=== PATIENT | male | born 1990 | race African-American/Black ===

== ENCOUNTER 2025-08-29 16:10 | Emergency (ER) | payer MEDICAID ==
[~2025-08-29] VITALS: Ht 180.3 cm; Wt 85.0 kg
[~2025-08-29 16:10] MED LIST: HYDR-4001 MT
[2025-08-29 16:21] VITALS: O2SAT 99
[2025-08-29] MEDS ORDERED: HYDR-4001 MT (17:56)
[2025-08-29 18:07] VITALS: BP 130/62; PULSE 80; RESP 16; TEMP 36.7; O2SAT 97
== END 2025-08-29 18:15 | disposition home or self-care (01) ==
LOC: ER 16:10
DX: M79.604 Pain in right leg (principal); Z76.0 Encounter for issue of repeat prescription; Z79.891 Long term (current) use of opiate analgesic
CPT/HCPCS: 99282